=== PATIENT | female | born 1940 | race Two or more races ===

== ENCOUNTER → 2017-10-10 | Outpatient (CLI) | END | disposition home or self-care (01) ==

== ENCOUNTER 2018-07-27 20:20 | Emergency (ER) | payer MEDICARE, OTHER ==
[~2018-07-27] VITALS: Ht 154.9 cm; Wt 69.7 kg
[2018-07-27 20:24] VITALS: Ht 154.9 cm; Wt 69.7 kg
[2018-07-27] MEDS ORDERED: LABETALOL HCL 20MG INJ IV ONE (21:00)
--- NOTE | 2018-07-27 23:02 | ERD ---
ER Documentation Chief Complaint Chief Complaint OLIVARES, DIZZINESS X'S 4 DAYS. HX OF HTN HPI This is a very pleasant 70-year-old female complains of headache and dizziness for 4 days. Her blood pressures been elevated. Denies fevers or chills. Denies nausea vomiting. Denies any other current complaints. Headache is mild to moderate intensity. She denies any focal neurologic complaints. Denies any chest pain or palpitations. She denies any current issues. ROS All systems reviewed and are negative except as per history of present illness. Allergies Allergies: Coded Allergies: No Known Allergy (Unverified , 07/27/18) Physical Exam Vitals Vital Signs Date Temp Pulse Resp B/P (MAP) Pulse Ox O2 O2 Flow FiO2 Time Delivery Rate 07/27/18 66 17 147/70 95 Room Air 21:30 (95) 07/27/18 86 20 176/80 94 Room Air 21:01 (112) 07/27/18 99.8 98 18 216/100 96 20:24 (138) Physical Exam Const: No acute distress Head: Atraumatic Eyes: Normal Conjunctiva ENT: Normal External Ears, Nose and Mouth. Neck: Full range of motion. No meningismus. Resp: Clear to auscultation bilaterally Cardio: Regular rate and rhythm, no murmurs Abd: Soft, non tender, non distended. Normal bowel sounds Skin: No petechiae or rashes Back: No midline or flank tenderness Ext: No cyanosis, or edema Neur: Awake and alert Psych: Normal Mood and Affect Result Diagram: 07/27/18210407/27/182104 Results 24 hrs Laboratory Tests Test 07/27/18 21:05 White Blood Count 6.2 10^3/ul Red Blood Count 4.17 10^6/ul Hemoglobin 12.6 g/dl Hematocrit 38.2 % Mean Corpuscular Volume 91.6 fl Mean Corpuscular Hemoglobin 30.2 pg Mean Corpuscular Hemoglobin Concent 33.0 g/dl Red Cell Distribution Width 13.5 % Platelet Count 264 10^3/UL Mean Platelet Volume 10.2 fl Immature Granulocytes % 0.300 % Neutrophils % 51.7 % Lymphocytes % 34.7 % Monocytes % 10.1 % Eosinophils % 2.1 % Basophils % 1.1 % Nucleated Red Blood Cells % 0.0 /100WBC Immature Granulocytes # 0.020 10^3/ul Neutrophils # 3.2 10^3/ul Lymphocytes # 2.2 10^3/ul Monocytes # 0.6 10^3/ul Eosinophils # 0.1 10^3/ul Basophils # 0.1 10^3/ul Nucleated Red Blood Cells # 0.0 10^3/ul Prothrombin Time 11.4 Sec Prothrombin Time Ratio 0.9 INR International Normalized Ratio 0.82 Activated Partial Thromboplast Time 28.1 Sec Sodium Level 141 mmol/L Potassium Level 3.6 mmol/L Chloride Level 107 mmol/L Carbon Dioxide Level 25 mmol/L Anion Gap 9 Blood Urea Nitrogen 16 mg/dl Creatinine 0.50 mg/dl Est Glomerular Filtrat Rate mL/min mL/min Glucose Level 101 mg/dl Calcium Level 9.3 mg/dl Troponin I < 0.012 ng/ml Current Medications Medications Dose Sig/Ashanti Start Time Status Last (Trade) Ordered Route PRN Stop Time Admin Dose Reason Admin Labetalol 20 mg ONCE ONCE 07/27/18 DC 07/27/18 HCl IV 21:00 07/27/18 21:18 (Labetalol) 21:01 Procedures/MDM EKG: Rate/Rhythm: Normal Sinus Rhythm QRS, ST, T-waves: No changes consistent w/ acute ischemia Impression: No evidence of ischemia or arrhythmia Chest X-ray 1V Interpreted by me: Soft Tissue: No acute abnormalities Bones: No acute abnormalities Mediastinum/Cardiac Silhouette/Lungs: No acute abnormalities Medical decision making: Patient's neurologic symptoms have stabilized while they have been evaluated in the department and are appropriate for outpatient work up. No e/o meningitis, intracranial bleed, seizure, stroke. Patient's blood pressure was elevated (>120/80) but appears stable without evidence of hypertension emergency or urgency. The patient was counseled about the risks of hypertension and urged to pursue outpatient monitoring and therapy within a week with their primary care physician. Departure Diagnosis: Primary Impression: Hypertension Hypertension type: unspecified Qualified Codes: I10 - Essential (primary) hypertension Condition: Stable Patient Instructions: High Blood Pressure (Hypertension) JANET GAMBINO Jul 27, 2018 23:02
[2018-07-27 23:10] VITALS: BP 141/71; PULSE 68; RESP 20
== END 2018-07-27 23:23 | disposition home or self-care (01) ==
LOC: E/R 20:20
DX: I10 Essential (primary) hypertension (principal); R40.2142 Coma scale, eyes open, spontaneous, at arrival to emergency department; R40.2362 Coma scale, best motor response, obeys commands, at arrival to emergency department; R40.2252 Coma scale, best verbal response, oriented, at arrival to emergency department; R07.9 Chest pain, unspecified
CPT/HCPCS: 36415; 70450; 71045; 80048; 84484; 85025; 85610; 85730; 93005; 96374

== ENCOUNTER 2018-07-30 04:06 | Emergency (ER) | payer MEDICARE, OTHER ==
[~2018-07-30] VITALS: Ht 154.9 cm; Wt 68.8 kg
[2018-07-30 04:11] VITALS: Ht 154.9 cm; Wt 68.8 kg
[2018-07-30 07:10] VITALS: BP 148/69; PULSE 61; RESP 18
--- NOTE | 2018-07-30 07:11 | ERD ---
ER Documentation Chief Complaint Chief Complaint per pt her BP was high she is on new med; c/o vertigo HPI During the patient's encounter translation services were utilized Language: Urdu Source: Video 78-year-old female history of hypertension who presents to the emergency room complaining of elevated blood pressure. She states that she noticed her blood pressure was significantly elevated in the 200 range. She took her medication, she does not know the name of the medication but it appears to be possibly clonidine. She states that she is told to only take this medication with a blood pressure is greater than 160. At the time she had a mild headache that is occipital in nature but dramatically improved upon blood pressure reduction. She denied any slurred speech, chest pain or shortness of breath. She states that she has since returned to her baseline. She possibly complained of vertigo to triage but denies that currently. ROS All systems reviewed and are negative except as per history of present illness. Allergies Allergies: Coded Allergies: No Known Allergy (Unverified , 07/27/18) PMhx/Soc History of Surgery: Yes (BILATERAL KNEE REPLACEMENT, HYSTERECTOMY) Anesthesia Reaction: No Hx Neurological Disorder: No Hx Respiratory Disorders: No Hx Cardiac Disorders: Yes (HTN, HIGH CHOLESTEROL) Hx Psychiatric Problems: No Hx Miscellaneous Medical Probl: Yes (ARTHRITIS) Hx Alcohol Use: No Hx Substance Use: No Hx Tobacco Use: No Smoking Status: Never smoker Physical Exam Vitals Vital Signs Date Temp Pulse Resp B/P (MAP) Pulse Ox O2 O2 Flow FiO2 Time Delivery Rate 07/30/18 60 20 153/70 95 Room Air 06:34 (97) 07/30/18 65 18 139/60 100 Room Air 05:10 (86) 07/30/18 98.0 75 19 173/83 98 04:11 (113) Physical Exam General: Well developed, well nourished, no acute distress Head: Normocephalic, atraumatic. Eyes: Pupils equally reactive, EOM intact ENT: Moist mucous membranes Neck: Supple, no lymphadenopathy Respiratory: Lungs clear bilaterally, no distress Cardiovascular: RRR, no murmurs, rubs, or gallops Abdominal: Soft, non-tender, non-distended, no peritoneal signs : Deferred MSK: No edema, no unilateral swelling, 5/5 strength Neurologic: Alert and oriented, moving all extremities, normal speech, no focal weakness, no cerebellar signs, steady gait Skin: No rash Psych: Normal mood Result Diagram: 07/30/18 0521 07/30/18 0521 Results 24 hrs Laboratory Tests Test 07/30/18 05:21 White Blood Count 5.2 10^3/ul Red Blood Count 4.20 10^6/ul Hemoglobin 12.7 g/dl Hematocrit 38.5 % Mean Corpuscular Volume 91.7 fl Mean Corpuscular Hemoglobin 30.2 pg Mean Corpuscular Hemoglobin Concent 33.0 g/dl Red Cell Distribution Width 13.5 % Platelet Count 252 10^3/UL Mean Platelet Volume 10.3 fl Immature Granulocytes % 0.200 % Neutrophils % 53.1 % Lymphocytes % 35.0 % Monocytes % 8.7 % Eosinophils % 1.7 % Basophils % 1.3 % Nucleated Red Blood Cells % 0.0 /100WBC Immature Granulocytes # 0.010 10^3/ul Neutrophils # 2.8 10^3/ul Lymphocytes # 1.8 10^3/ul Monocytes # 0.5 10^3/ul Eosinophils # 0.1 10^3/ul Basophils # 0.1 10^3/ul Nucleated Red Blood Cells # 0.0 10^3/ul Sodium Level 140 mmol/L Potassium Level 3.9 mmol/L Chloride Level 106 mmol/L Carbon Dioxide Level 27 mmol/L Anion Gap 7 Blood Urea Nitrogen 16 mg/dl Creatinine 0.58 mg/dl Est Glomerular Filtrat Rate mL/min mL/min Glucose Level 113 mg/dl Calcium Level 9.5 mg/dl Total Bilirubin 0.5 mg/dl Direct Bilirubin 0.00 mg/dl Indirect Bilirubin 0.5 mg/dl Aspartate Amino Transf (AST/SGOT) 22 IU/L Alanine Aminotransferase (ALT/SGPT) 26 IU/L Alkaline Phosphatase 53 IU/L Troponin I < 0.012 ng/ml B-Type Natriuretic Peptide 122 PG/ML Total Protein 7.3 g/dl Albumin 4.3 g/dl Globulin 3.00 g/dl Albumin/Globulin Ratio 1.43 Procedures/MDM EKG, MONITORS, & DIAGNOSTIC IMAGING: EKG: I reviewed and interpreted a 12-lead EKG. Rhythm: Normal sinus rhythm ST Changes: No contiguous ST segment elevations T waves: No contiguous T wave inversions Impression: No evidence of acute cardiac ischemia cxr IMPRESSION: No evidence congestive heart failure or pneumonia. RPTAT:AAJJ LAB INTERPRETATION: I reviewed the laboratory testing and it shows no evidence of acute process MEDICAL DECISION MAKING: Patient presents with asymptomatic hypertension and likely hypertensive urgency rather than emergency. The patient described some mild headache but states that she always gets this type headache when her blood pressure is elevated. The pat ient has an examination that shows nonfocal neurologic process. The patient has no symptoms upon my assessment. Patient denies any chest pain or exertional symptoms. The patient had laboratory testing and diagnostic imaging ordered by the overnight provider. I reviewed this and it shows no evidence of endorgan dysfunction. I had a further conversation with the patient he states that she is asymptomatic and blood pressures in the 150 range. At this point I do not believe that the patient's headache represents acute intracranial hemorrhage. I do not believe CT imaging of the brain is appropriate or necessary at this time. ER COURSE: * The patient continues to be well-appearing in the emergency room setting. Blood pressure trended down without significant intervention. * Laboratory testing and diagnostic imaging show no evidence of endorgan dysfunction. * The patient can be safely discharged with close primary care follow-up. CONSULTATION: None DISPOSITION PLAN: The patient does not have an identifiable emergent medical condition that warrants inpatient hospitalization at this time. The patient is deemed safe for discharge with outpatient follow-up. We discussed follow up with the patient's primary care doctor within 24 to 48 hours as needed. We also discussed return to the emergency room for worsening symptoms or worsening condition. Outpatient referral: None required Discharge Medications: None required Departure Diagnosis: Primary Impression: Asymptomatic hypertensive urgency Condition: Good Patient Instructions: Hypertension, Established, Out Of Control [facility]: [facility] Usted se chopra hecho un examen mdico de control que le indica que no est en freddy condicin que requiera tratamiento urgente en el Departamento de Emergencia. Un estudio ms profundo y el tratamiento de casas condicin pueden esperar sin ningn riesgo hasta que usted sea atendida/o en el consultorio de casas mdico o freddy clnica. Es responsabilidad suya arreglar freddy eusebio para el seguimiento del jessica. MANEJO DE CONDICIONES NO URGENTES EN EL FUTURO 1) Si usted tiene un mdico de atencin primaria: Usted debera llamar a casas mdico de atencin primaria antes de venir al departamento de emergencia. Despus de las horas de consultorio, casas doctor o casas asociado/a est disponible por telfono. El mdico o enfermero de tenisha en el servicio telefnico puede asesorarle por raffi medio para atender el problema, o jessica contrario se puede programar freddy eusebio. 2) Si usted no tiene un mdico de atencin primaria: Llame al mdico o clnica de referencia que aparece abajo daily las horas de consultorio para hacer freddy eusebio para que le vean. CLINICAS: [facility] [phone] [facility] [phone] [facility] [phone] [address] [facility] [facility] [phone] [address] [facility] [address] [place] [id number] [phone] [facility] [phone] [address] [facility]. [facility] () Usted se chopra hecho un examen mdico de control que le indica que no est en freddy condicin que requiera tratamiento urgente en el Departamento de Emergencia. Un estudio ms profundo y el tratamiento de casas condicin pueden esperar sin ningn riesgo hasta que usted sea atendida/o en el consultorio de casas mdico o freddy clnica. Es responsabilidad suya arreglar freddy eusebio para el seguimiento del jessica. MANEJO DE CONDICIONES NO URGENTES EN EL FUTURO 1) Si usted tiene un mdico de atencin primaria: Usted debera llamar a casas mdico de atencin primaria antes de venir al departamento de emergencia. Despus de las horas de consultorio, casas doctor o casas asociado/a est disponible por telfono. El mdico o enfermero de tenisha en el servicio telefnico puede asesorarle por raffi medio para atender el problema, o jessica contrario se puede programar freddy eusebio. 2) Si usted no tiene un mdico de atencin primaria: Llame al mdico o condado institucions de referencia que aparece abajo daily las horas de consultorio para hacer freddy eusebio para que le vean. SI USTED NO PUEDE PAGAR PARA VICENTE UN MEDICO puede ir a: [facility] [address] [place], [place] [id number] [place] [address] [address] [place] [address] [facility] [address] [place] [address] PARA ESSIE [facility] [address] [place] [place], [place] [id number] Additional Instructions: Llame al doctor nombrado abajo (Referral Sources) MAANA y jose freddy EUSEBIO PARA DENTRO DE FREDDY SEMANA. Dgale a la secretaria que nosotros le instruimos hacer esta eusebio.Avise o llame si casas condicin se empeora antes de la eusebio. TUSHAR DURAN MD Jul 30, 2018 07:11
== END 2018-07-30 07:10 | disposition home or self-care (01) ==
LOC: E/R 04:06
DX: I16.0 Hypertensive urgency (principal); Z96.653 Presence of artificial knee joint, bilateral
CPT/HCPCS: 36415; 71045; 80053; 83880; 84484; 85025; 93005